=== PATIENT | male | born 1980 | race Two or more races ===

== ENCOUNTER 2016-12-23 12:13 | Emergency (ER) | payer OTHER ==
[~2016-12-23] VITALS: Ht 175.3 cm; Wt 83.9 kg
[2016-12-23 12:51] LABS: Basophils # (auto) 0 uL; Basophils % (auto) 0.5 % (0.0-2.0); Eosinophils # (auto) 0 uL; Eosinophils % (auto) 0.2 % (0.0-7.0); Hematocrit 44.6 % (41.0-53.0); Hemoglobin 15.1 g/dL (13.5-17.5); Lymphocytes # (auto) 1.9 uL; Lymphocytes % (auto) 37.8 % (10.0-50.0); Mean Corpuscular Hgb Conc. 33.9 g/dL (32.0-36.0); Mean Corpuscular Volume 91.4 fL (80.0-100.0); Mean Platelet Volume 7.2 fL (6.9-10.8); Monocytes # (auto) 0.5 uL; Monocytes % (auto) 9.2 % (0.0-12.0); Neutrophils # (auto) 2.6 uL; Neutrophils % (auto) 52.3 % (37.0-80.0); Nucleated Red Blood Cells % 0.1 %; Platelet Count (auto) 198 10^3/uL (140-450); Red Cell Distribution Width 14.2 % (11.8-14.3)
[2016-12-23 13:13] LABS: Urine Bilirubin Negative (Negative); Urine Blood Negative /uL (Negative); Urine Color Yellow (Yellow); Urine Glucose Normal (Normal); Urine Ketone Negative (Negative); Urine Mucus FEW (None Seen); Urine Nitrite Negative (Negative); Urine RBC None Seen /hpf (0 - 3); Urine Squamous Epithelial Cell FEW /hpf (<5)
[2016-12-23 13:19] LABS: Albumin 3.5 g/dL (3.4-5.0); BUN/Creatinine Ratio 12.3; Bilirubin, Total 0.3 mg/dL (0.2-1.0); Calcium 7.9 mg/dL (8.5-10.1); Potassium 3.1 mmol/L (3.5-5.1); Total Protein 7.4 g/dL (6.4-8.2)
[2016-12-23 14:49] VITALS: BP 145/92
== END 2016-12-23 16:50 | disposition left against medical advice (07) ==
LOC: ER 12:13
DX: F10.239 Alcohol dependence with withdrawal, unspecified (principal); R51 Headache; Z53.21 Procedure and treatment not carried out due to patient leaving prior to being seen by health care provider
CPT/HCPCS: 36415; 80053; 80307; 80320; 81001; 85025